=== PATIENT | male | born 1955 | race Caucasian/White ===

== ENCOUNTER 2020-04-27 09:59 | Observation (INO) | payer BC ==
[~2020-04-27] VITALS: Ht 172.7 cm; Wt 67.1 kg
[2020-04-27 10:23] VITALS: BP_SYST 114; BP_SYST 116; BP_SYST 121; BP_DIAS 69; BP_DIAS 71; BP_DIAS 72
[2020-04-27 10:27] LABS: BASOPHILS # (AUTO) 0.1 10^3/uL (0.0-0.1); BASOPHILS % (AUTO) 1 % (0-10); EOSINOPHILS # (AUTO) 0.2 10^3/uL (0.0-0.3); EOSINOPHILS % (AUTO) 2 % (0-10); HEMATOCRIT 39 % (40-54); HEMOGLOBIN 13.5 g/dL (13.3-17.7); LYMPHOCYTES # (AUTO) 1.2 10^3/uL (1.0-4.0); LYMPHOCYTES % (AUTO) 18 % (12-44); MEAN CORPUSCULAR HEMOGLOBIN 33 pg (25-34); MEAN CORPUSCULAR HGB CONC 35 g/dL (32-36); MEAN CORPUSCULAR VOLUME 95 fL (80-99); MEAN PLATELET VOLUME 8.9 fL (9.0-12.2); MONOCYTES # (AUTO) 0.3 10^3/uL (0.0-1.0); MONOCYTES % (AUTO) 4 % (0-12); NEUTROPHILS % (AUTO) 75 % (42-75); PLATELET COUNT 260 10^3/uL (130-400); WHITE BLOOD COUNT 6.7 10^3/uL (4.3-11.0)
--- NOTE | 2020-04-27 10:29 | ED Syncope ---
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 PAIN IN NECK EARLIER, NO CURRENT PAIN. Source of Information: Patient Exam Limitations: No Limitations History of Present Illness Date Seen by Provider: Apr 27, 2020 Time Seen by Provider: 10:09 Initial Comments Patient presents to the ER by private conveyance with chief complaint that this morning while exerting himself pulling some cable off of a truck at work he started feeling hot, dizzy, lightheaded and had to sit down. He felt some pain and tightness on both sides of his neck and the back. He denies shortness of breath nausea chest pain or abdominal pain. He says after resting the symptoms started to go away. When he got up to start working again he started feeling lightheaded and dizzy so his alves sent him to the ER. He says symptoms started at 8:30 approximately an hour and 45 minutes prior to arrival. He has no history of coronary disease. He is followed by Dr. GOMES. He does not take any medicines routinely. He does annual checkups but does not have any known medical problems. He denies cholesterol, hypertension, diabetes. He stopped smoking over 40 years ago but continues to use chew tobacco. He denies recreational drugs and only occasionally has a drink on weekends. No significant family medical history. He is in no distress at this time. He denies having actual passed out but he says is not certain and his alves told them that they thought he passed out for a short time. Allergies and Home Medications Allergies Coded Allergies: No Known Drug Allergies (Unverified , 06/03/16) Home Medications No Active Prescriptions or Reported Meds Patient Home Medication List Home Medication List Reviewed: Yes Review of Systems Constitutional: No chills, No diaphoresis, No fever, No malaise EENTM: No ear discharge, No ear pain Respiratory: No orthopnea, No phlegm, No short of breath Cardiovascular: see HPI; No chest pain, No Hx of Intervention, No palpitations; syncope Gastrointestinal: No abdominal pain, No constipation, No diarrhea, No nausea, No vomiting Genitourinary: No discharge, No dysuria Musculoskeletal: see HPI; No back pain, No joint pain; neck pain All Other Systems Reviewed Negative Unless Noted: Yes Past Yoqadcz-Pheojc-Zwpkak Hx Patient Social History Alcohol Use: Occasionally Uses Alcohol Beverage of Choice: Beer Recreational Drug Use: No Type Used: Cigarettes (quit over 40 years ago), Smokeless Tobacco (current) Former Smoker, Quit: Jun 03, 1976 Recent Foreign Travel: No Contact w/Someone Who Travel: No Recent Infectious Disease Expo: No Recent Hopitalizations: No Immunizations Up To Date Tetanus Booster (TDap): Unknown Seasonal Allergies Seasonal Allergies: No Past Medical History Currently Using CPAP: No Reproductive Disorders: No Sexually Transmitted Disease: No HIV/AIDS: No Physical Exam Vital Signs Vital Signs - First Documented 04/27/20 10:14 Temp 34.7 Pulse 60 Resp 18 B/P (MAP) 129/74 (92) Pulse Ox 100 O2 Delivery Room Air Capillary Refill : Less Than 3 Seconds Height, Weight, BMI Height: 5'8.00" Weight: 150lbs. 0.0oz. 68.096173ep; 21.00 BMI Method: General Appearance: No Apparent Distress, WD/WN HEENT: PERRL/EOMI, TMs Normal, Normal ENT Inspection, Pharynx Normal, Moist Mucous Membranes Neck: Full Range of Motion, Normal Inspection, Non Tender, Supple Cardiovascular: Regular Rate, Rhythm, No Edema, Normal Peripheral Pulses Respiratory: Chest Non Tender, Lungs Clear, Normal Breath Sounds, No Accessory Muscle Use, No Respiratory Distress Gastrointestinal: Normal Bowel Sounds, Non Tender, Soft Extremities: Normal Capillary Refill, Normal Inspection, Normal Range of Motion, Non Tender, No Calf Tenderness, No Pedal Edema Neurologic/Psychiatric: Alert, Oriented x3, No Motor/Sensory Deficits, Normal 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, 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 Norm as Tested Cranial Nerves: Normal Hearing, Normal Speech, PERRL Skin: Normal Color, Warm/Dry Progress/Results/Core Measures Results/Orders Lab Results Laboratory Tests Test 04/27/20 10:18 Range/Units White Blood Count 6.7 4.3-11.0 10^3/uL Red Blood Count 4.09 L 4.30-5.52 10^6/uL Hemoglobin 13.5 13.3-17.7 g/dL Hematocrit 39 L 40-54 % Mean Corpuscular Volume 95 80-99 fL Mean Corpuscular Hemoglobin 33 25-34 pg Mean Corpuscular Hemoglobin Concent 35 32-36 g/dL Red Cell Distribution Width 13.2 10.0-14.5 % Platelet Count 260 130-400 10^3/uL Mean Platelet Volume 8.9 L 9.0-12.2 fL Immature Granulocyte % (Auto) 0 % Neutrophils (%) (Auto) 75 42-75 % Lymphocytes (%) (Auto) 18 12-44 % Monocytes (%) (Auto) 4 0-12 % Eosinophils (%) (Auto) 2 0-10 % Basophils (%) (Auto) 1 0-10 % Neutrophils # (Auto) 5.0 1.8-7.8 10^3/uL Lymphocytes # (Auto) 1.2 1.0-4.0 10^3/uL Monocytes # (Auto) 0.3 0.0-1.0 10^3/uL Eosinophils # (Auto) 0.2 0.0-0.3 10^3/uL Basophils # (Auto) 0.1 0.0-0.1 10^3/uL Immature Granulocyte # (Auto) 0.0 0.0-0.1 10^3/uL Prothrombin Time 13.9 12.2-14.7 SEC INR Comment 1.0 0.8-1.4 Activated Partial Thromboplast Time 29 24-35 SEC Sodium Level 141 135-145 MMOL/L Potassium Level 3.7 3.6-5.0 MMOL/L Chloride Level 104 98-107 MMOL/L Carbon Dioxide Level 25 21-32 MMOL/L Anion Gap 12 5-14 MMOL/L Blood Urea Nitrogen 18 7-18 MG/DL Creatinine 1.24 0.60-1.30 MG/DL Estimat Glomerular Filtration Rate 58 BUN/Creatinine Ratio 15 Glucose Level 139 H 70-105 MG/DL Calcium Level 9.1 8.5-10.1 MG/DL Corrected Calcium 8.9 8.5-10.1 MG/DL Magnesium Level 2.2 1.6-2.4 MG/DL Total Bilirubin 1.0 0.1-1.0 MG/DL Aspartate Amino Transf (AST/SGOT) 22 5-34 U/L Alanine Aminotransferase (ALT/SGPT) 19 0-55 U/L Alkaline Phosphatase 61 40-136 U/L Myoglobin 96.3 H 10.0-92.0 NG/ML Troponin I < 0.028 <0.028 NG/ML B-Type Natriuretic Peptide 16.6 <100.0 PG/ML Total Protein 6.8 6.4-8.2 GM/DL Albumin 4.2 3.2-4.5 GM/DL My Orders Orders - LENIN WALLACE Cbc With Automated Diff (04/27/20 10:21) Magnesium (04/27/20 10:21) Chest 1 View, Ap/Pa Only (04/27/20 10:21) Ekg Tracing (04/27/20 10:21) Comprehensive Metabolic Panel (04/27/20 10:21) Myoglobin Serum (04/27/20 10:21) Protime With Inr (04/27/20 10:) Partial Thromboplastin Time (04/27/20 10:21) O2 (04/27/20 10:) Monitor-Rhythm Ecg Trace Only (04/27/20 10:) Lipid Panel (04/28/20 06:00) Ed Iv/Invasive Line Start (04/27/20 10:21) BNP (04/27/20 10:) Troponin I (04/27/20 10:) Aspirin Chewable Tablet (Baby Aspirin Ch (04/27/20 10:30) Orthostatic Vital Signs (Adult (04/27/20 10:21) Medications Given in ED Current Medications Medications Dose Ordered Sig/Robina Route Start Time Stop Time Status Last Admin Dose Admin Aspirin 324 mg ONCE ONCE PO 04/27/20 10:30 04/27/20 10:31 DC 04/27/20 10:34 324 MG Vital Signs/I&O 04/27/20 10:14 Temp 34.7 Pulse 60 Resp 18 B/P (MAP) 129/74 (92) Pulse Ox 100 O2 Delivery Room Air Blood Pressure Mean: 92 Progress Progress Note : Time: 10:28 Progress Note On EKG patient does have about half a block ST elevation in all 3 of his anterior leads V1 through V3. He's not having any symptoms at this time but we will cover him with aspirin. Concern would be that his symptoms came on with exertion and maybe an atypical anginal presentation with near syncope. First troponin was about 2 hours after his symptoms started. Plan to do orthostatic vital signs. Heart score with a negative troponin would still be 5 points. Initial ECG Impression Date: Apr 27, 2020 Initial ECG Impression Time: 10:17 Initial ECG Rate: 63 Initial ECG Rhythm: Normal Sinus Initial ECG Intervals: Normal Initial ECG Impression: Nonspecific Changes Initial ECG Comparisson: No Previous ECG Available Comment Normal sinus rhythm with one half box ST elevation in leads V1 through V3 of uncertain clinical significance. No ST elevation NE. No previous EKG to compare to. Diagnostic Imaging Diagonstic Imaging: Xray Plain Films/CT/US/NM/MRI: chest Comments [facility]. [place], [place] NAME: NENO CHAO [facility] REC#: [id number] PT STATUS: REG ER : 1955 PHYSICIAN: LENIN WALLACE MD ADMIT DATE: 04/27/20/ER Draft Date of Exam:04/27/20 CHEST 1 VIEW, AP/PA ONLY INDICATION: Dizziness and weakness. Time of exam 10:40 AM No prior studies are available for comparison. The heart size is normal. The pulmonary vascularity is unremarkable. The lungs are clear. No infiltrate, effusion or pneumothorax is detected. Impression: No acute cardiopulmonary process is detected. Dictated on workstation # [id number] Dict: 04/27/20 1046 Trans: 04/27/20 1047 [facility] [id number] Interpreted by: DOLLY GOLD MD Electronically signed by: Reviewed: Reviewed by Me Departure Communication (Admissions) Time/Spoke to Admitting Phy: 11:45 Discussed the case with Dr. Ramirez and he agrees to observe the patient on telemetry with cardiac consult. Time/Spoke to Consulting Phy: 11:[address] Macario, cardiology and he reviewed EKG and agrees to consult. Delta troponins Impression Primary Impression: Near syncope Additional Impression: atypical angina suspected Disposition: ADMITTED INPATIENT Condition: Stable Admissions Decision to Admit Reason: Admit from ER (General) Decision to Admit/Date: Apr 27, 2020 Time/Decision to Admit Time: 11:00 Departure-Patient Inst. Referrals: JESI GOMES DO (PCP/Family) Primary Care Physician Scripts No Active Prescriptions or Reported Meds LENIN WALLACE Apr 27, 2020 10:29
[2020-04-27] MEDS ORDERED: ASPIRIN 81 MG CHEW (CHILDREN'S ASA) PO ONE (10:30)
[2020-04-27 10:35] LABS: PROTHROMBIN TIME PATIENT 13.9 SEC (12.2-14.7)
[2020-04-27 10:44] LABS: ALBUMIN 4.2 GM/DL (3.2-4.5); CALCIUM 9.1 MG/DL (8.5-10.1); CREATININE SERUM 1.24 MG/DL (0.60-1.30); MAGNESIUM 2.2 MG/DL (1.6-2.4); POTASSIUM 3.7 MMOL/L (3.6-5.0); TOTAL PROTEIN 6.8 GM/DL (6.4-8.2)
--- NOTE | 2020-04-27 10:47 | Diagnostic Imaging Report ---
INDICATION: Dizziness and weakness. Time of exam 10:40 AM No prior studies are available for comparison. The heart size is normal. The pulmonary vascularity is unremarkable. The lungs are clear. No infiltrate, effusion or pneumothorax is detected. Impression: No acute cardiopulmonary process is detected. Dictated by: Dictated on workstation # [id number]
--- NOTE | 2020-04-27 11:02 | NUR ---
UPDATED FAMILY AT THIS TIME, AND SON.
[2020-04-27 12:26] VITALS: BP 120/69
[2020-04-27] MEDS ORDERED: CATHETER FLUSH 10 ML SYR IV PRN (12:30)
[2020-04-27] MEDS ORDERED: ONDANSETRON 4 MG/2 ML (SDV) Z0FRAN IV PRN (12:30)
[2020-04-27] MEDS ORDERED: morphine INJ 4 MG/ML 1 ML (VIAL/SYRINGE) IV PRN (12:30)
[2020-04-27] MEDS ORDERED: NITROGLYCERIN 0.4 MG SL TABS BTL 25'S SL PRN (12:30)
--- NOTE | 2020-04-27 14:27 | Consultation-Cardiology ---
HPI-Cardiology Cardiology Consultation Date of Consultation 04/27/20 Date of Admission Time Seen by Provider: 14:23 Indication: syncope HPI 64 years old gentleman with no significant past medical history, was working in the morning when he felt flushed and hot and lightheaded. Patient reported that he sat down with questionable syncope but does not recall passing out or fallin g. Patient expressed that he went and sat in his scars and had another similar episode where he felt flushed and lightheaded. He was sent to the emergency room. No previous similar episodes were reported, not taking any medication, did not have any cardiac history Home Medications & Allergies Allergies: Coded Allergies: No Known Drug Allergies (Unverified , 06/03/16) Home Medication List Reviewed: Yes VPT-Yrquiy-Ioorwh Hx Patient Social History Marital Status: Employed/Student: employed Alcohol Use: Occasionally Uses Recreational Drug Use: No Type Used: Cigarettes (quit over 40 years ago), Smokeless Tobacco (current) Recent Foreign Travel: No Recent Infectious Disease Expo: No Recent Hopitalizations: No Immunizations Up To Date Tetanus Booster (TDap): Unknown Past Medical History No significant past medical history Review of Systems-General Review of Systems Constitutional: see HPI; No chills, No diaphoresis, No fever, No malaise EENTM: No ear discharge, No ear pain Respiratory: No no symptoms reported; see HPI; No cough, No dyspnea on exertion, No hemoptysis, No orthopnea, No phlegm, No short of breath, No stridor, No wheezing, No other Cardiovascular: see HPI; No chest pain, No Hx of Intervention, No palpitations; syncope Gastrointestinal: no symptoms reported, see HPI; No abdominal pain, No constipation, No diarrhea, No nausea, No vomiting Genitourinary: no symptoms reported, see HPI; No discharge, No dysuria Musculoskeletal: no symptoms reported, see HPI; No back pain, No joint pain; neck pain Skin: no symptoms reported, see HPI Psychiatric/Neurological: No Symptoms Reported, See HPI All Other Systems Reviewed Negative Unless Noted: Yes Reviewed Test Results Reviewed Test Results Lab Laboratory Tests Test 04/27/20 10:18 Range/Units White Blood Count 6.7 4.3-11.0 10^3/uL Red Blood Count 4.09 L 4.30-5.52 10^6/uL Hemoglobin 13.5 13.3-17.7 g/dL Hematocrit 39 L 40-54 % Mean Corpuscular Volume 95 80-99 fL Mean Corpuscular Hemoglobin 33 25-34 pg Mean Corpuscular Hemoglobin Concent 35 32-36 g/dL Red Cell Distribution Width 13.2 10.0-14.5 % Platelet Count 260 130-400 10^3/uL Mean Platelet Volume 8.9 L 9.0-12.2 fL Immature Granulocyte % (Auto) 0 % Neutrophils (%) (Auto) 75 42-75 % Lymphocytes (%) (Auto) 18 12-44 % Monocytes (%) (Auto) 4 0-12 % Eosinophils (%) (Auto) 2 0-10 % Basophils (%) (Auto) 1 0-10 % Neutrophils # (Auto) 5.0 1.8-7.8 10^3/uL Lymphocytes # (Auto) 1.2 1.0-4.0 10^3/uL Monocytes # (Auto) 0.3 0.0-1.0 10^3/uL Eosinophils # (Auto) 0.2 0.0-0.3 10^3/uL Basophils # (Auto) 0.1 0.0-0.1 10^3/uL Immature Granulocyte # (Auto) 0.0 0.0-0.1 10^3/uL Prothrombin Time 13.9 12.2-14.7 SEC INR Comment 1.0 0.8-1.4 Activated Partial Thromboplast Time 29 24-35 SEC Sodium Level 141 135-145 MMOL/L Potassium Level 3.7 3.6-5.0 MMOL/L Chloride Level 104 98-107 MMOL/L Carbon Dioxide Level 25 21-32 MMOL/L Anion Gap 12 5-14 MMOL/L Blood Urea Nitrogen 18 7-18 MG/DL Creatinine 1.24 0.60-1.30 MG/DL Estimat Glomerular Filtration Rate 58 BUN/Creatinine Ratio 15 Glucose Level 139 H 70-105 MG/DL Calcium Level 9.1 8.5-10.1 MG/DL Corrected Calcium 8.9 8.5-10.1 MG/DL Magnesium Level 2.2 1.6-2.4 MG/DL Total Bilirubin 1.0 0.1-1.0 MG/DL Aspartate Amino Transf (AST/SGOT) 22 5-34 U/L Alanine Aminotransferase (ALT/SGPT) 19 0-55 U/L Alkaline Phosphatase 61 40-136 U/L Myoglobin 96.3 H 10.0-92.0 NG/ML Troponin I < 0.028 <0.028 NG/ML B-Type Natriuretic Peptide 16.6 <100.0 PG/ML Total Protein 6.8 6.4-8.2 GM/DL Albumin 4.2 3.2-4.5 GM/DL Physical Exam Physical Exam Vital Signs Vital Signs - First Documented 04/27/20 10:14 Temp 34.7 Pulse 60 Resp 18 B/P (MAP) 129/74 (92) Pulse Ox 100 O2 Delivery Room Air Capillary Refill : Less Than 3 Seconds Height, Weight, BMI Height: 5'8.00" Weight: 150lbs. 0.0oz. 68.956868bt; 21.49 BMI Method: General Appearance: No Apparent Distress, WD/WN Eyes: Bilateral Eye Normal Inspection, Bilateral Eye PERRL, Bilateral Eye EOMI HEENT: PERRL/EOMI, TMs Normal, Normal ENT Inspection, Pharynx Normal, Moist Mucous Membranes Neck: Full Range of Motion, Normal Inspection, Non Tender, Supple Respiratory: Chest Non Tender, Lungs Clear, Normal Breath Sounds, No Accessory Muscle Use, No Respiratory Distress Cardiovascular: Regular Rate, Rhythm, No Edema, Normal Peripheral Pulses Gastrointestinal: Normal Bowel Sounds, Non Tender, Soft Back: Normal Inspection, No CVA Tenderness, No Vertebral Tenderness Extremity: Normal Capillary Refill, Normal Inspection, Normal Range of Motion, Non Tender, No Calf Tenderness, No Pedal Edema Neurologic/Psychiatric: Alert, Oriented x3, No Motor/Sensory Deficits, Normal 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 I will evaluate 2-D echo and monitor on telemetry. Okay for discharge and follow-up as an outpatient Hypotension, transient, educated on increasing fluid intake and monitoring his blood pressure History of tobaccoism in the remote past LESLIE CARMONA MD Apr 27, 2020 14:27
--- NOTE | 2020-04-27 15:00 | History & Physical-Hospitalist ---
CHONG RHODES MED STUDENT 04/27/20 1459: History of Present Illness HPI/Chief Complaint Valentin Ruiz is a 64y/o M with cc of lightheadedness, dizziness and questionable syncoble episode. Pt presented to the ED at 10:09 from private vehicle after experiencing these symptoms while pulling some cable off the back of a work truck. Pt denies syncope but per ER report, alves thought he may have passed out for a short time. The pt went and sat in the truck, when he experienced similiar sxs again, at which time his alves recommended he go to the ER. When I spoke with the pt he described mainly having lightheadedness, less so dizziness, and additionally he felt flushed. He denied any pain anywhere during this episode. In the car on the way to the ER, he states his fingers felt cold and they had a hard time getting warm. Pt denies ever having an episode like this before. Pt denies any SOB, cough, phlem production, palpitations, abd pain, nausea or vomiting. Pt denies any recent viral illness. Pt denies ever having an episode like this before. Source: patient, EMS notes reviewed, old records Date Seen 04/27/20 Attending Physician Tyrel Robb MD PCP Giancarlo Anderson DO Referring Physician Date of Admission Apr 27, 2020 at 11:20 Home Medications & Allergies Home Medications Reviewed patient Home Medication Reconciliation performed by pharmacy medication reconciliations civil technician and/or nursing. Patients Allergies have been reviewed. Allergies Allergies Coded Allergies No Known Drug Allergies (Clmoyuulmq74/20/16) Past Bdjmebv-Cvjmvr-Ccwvxt Hx Patient Social History Marrital Status: Employed/Student: employed Alcohol Use: Occasionally Uses Alcohol Beverage of Choice: Beer Recreational Drug Use: No Former Smoker, Quit: Jun 03, 1976 Type Used: Cigarettes (quit over 40 years ago), Smokeless Tobacco (current) Recent Foreign Travel: No Contact w/other who traveled: No Recent Hopitalizations: No Recent Infectious Disease Expo: No Immunizations Up To Date Tetanus Booster (TDap): Unknown Seasonal Allergies Seasonal Allergies: No Past Medical History Surgeries: Orthopedic Currently Using CPAP: No Reproductive: No Sexually Transmitted Disease: No HIV/AIDS: No History of Blood Disorders: No Review of Systems Constitutional: No chills, No diaphoresis; dizziness; No fever Respiratory: No cough, No dyspnea on exertion, No phlegm, No short of breath Cardiovascular: No chest pain, No Hx of Intervention, No palpitations; syncope Gastrointestinal: No abdominal pain, No constipation, No diarrhea, No nausea, No vomiting Genitourinary: No dysuria, No incontinence Physical Exam Physical Exam Vital Signs Vital Signs - First Documented 04/27/20 10:14 Temp 34.7 Pulse 60 Resp 18 B/P (MAP) 129/74 (92) Pulse Ox 100 O2 Delivery Room Air Capillary Refill : Less Than 3 Seconds Height, Weight, BMI Height: 5'8.00" Weight: 150lbs. 0.0oz. 68.550578xj; 21.49 BMI Method: General Appearance: No Apparent Distress, WD/WN Eyes: Bilateral Eye Normal Inspection, Bilateral Eye PERRL, Bilateral Eye EOMI HEENT: PERRL/EOMI, Normal ENT Inspection, Moist Mucous Membranes; No Tonsillar Exudate, No Tonsillar Enlargement Neck: Full Range of Motion, Normal Inspection Respiratory: Lungs Clear, Normal Breath Sounds, No Accessory Muscle Use, No Respiratory Distress Cardiovascular: Regular Rate, Rhythm, No Edema, No Gallop, No Murmur, Normal Peripheral Pulses Gastrointestinal: Normal Bowel Sounds, No Organomegaly, No Pulsatile Mass, Non Tender, Soft Rectal: Deferred Extremity: Normal Capillary Refill, No Pedal Edema Neurologic/Psychiatric: Alert, Oriented x3, Normal 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 Assessment/Plan Admission Diagnosis Hypotensive Syncopal Episode Admission Status: Inpatient Order (span 2 midnights) Reason for Inpatient Admission: Lightheadedness Assessment and Plan Lightheadedness Likely syncopal episode 2/2 dehydration, versus vasovagal syncope, cardiovascular syncope or hypoglycemia. Troponin neg in ED. BNP normal. ED EKG showed a half block ST elevation in leads V1 to V3. CXR without acute changes. Will follow troponin serially. Assess for other cardiovascular RFs: order HgA1c, lipid panel. Continue aspirin, morphine and nitrogylcerin. Cardiology consulted, appreciate recommendations. DVT Prophylaxis: Continue Aspirin. TYREL ROBB MD 04/28/20 6139: History of Present Illness Time Seen by a Provider: 15:00 Past Fdmglwj-Umoeur-Ifibti Hx Past Med/Social Hx: Reviewed Nursing Past Med/Soc Hx Assessment/Plan Assessment and Plan Patient admitted with pre-syncope. Troponins normal. EKG unremarkable. Low-risk for CAD per Heart Score. Echo normal. Carotid ultrasound unremarkable. Diagnosis/Problems Diagnosis/Problems (1) Near syncope Status: Acute Supervisory-Addendum Brief Verification & Attestation Participated in pt care: history, MDM Personally performed: exam, history, MDM, supervision of care Care discussed with: Medical Student Procedures: n/a Results interpretation: Verified all documentation Verification and Attestation of Medical Student E/M Service A medical student performed and documented this service in my presence. I reviewed and verified all information documented by the medical student and made modifications to such information, when appropriate. I personally performed the physical exam and medical decision making. Tyrel Robb, Apr 28, 2020,17:55 CHONG RHODES MED STUDENT Apr 27, 2020 14:59 TYREL ROBB MD Apr 28, 2020 17:55
--- NOTE | 2020-04-27 15:55 | NUR ---
SPOKE WITH THE PT TO COMPLETE THE MED REC PT DENIES TAKING ANY MEDICATIONS
--- NOTE | 2020-04-27 15:59 | Diagnostic Imaging Report ---
PROCEDURE: US carotid duplex, bilateral. TECHNIQUE: Multiple real-time grayscale images were obtained over the carotid arteries in various projections, bilaterally. Additional spectral analysis and color Doppler duplex images were also obtained. INDICATION: Syncope. COMPARISON: None available. FINDINGS: Right carotid circulation: The right common carotid artery is normal in caliber, and there is no significant stenosis. Peak systolic velocity in the right common carotid artery is 96 cm/sec. There is a small amount of atherosclerotic plaque in the carotid bulb and proximal internal carotid artery, which results in less than 50% luminal narrowing by diaz scale imaging. The peak systolic velocity in the proximal internal carotid artery is 66 cm/sec. Proximal aspect of the external carotid artery is patent with expected high resistance waveforms, and peak systolic velocity of 87 cm/sec. Left carotid circulation: The left common carotid artery is normal in caliber, and there is no significant stenosis. Peak systolic velocity in the left common carotid artery is 100 cm/sec. There is no atherosclerotic plaque or narrowing in the carotid bulb or proximal ICA. The peak systolic velocity in the proximal internal carotid artery is 81 cm/sec. Proximal aspect of the external carotid artery is patent with expected high resistance waveforms, and peak systolic velocity of 74 cm/sec. Vertebral arteries: Flow in the bilateral vertebral arteries is antegrade. IMPRESSION: 1. Less than 50% stenosis at the origin of the right internal carotid artery due to calcified atherosclerotic plaque. 2. Normal left internal carotid artery. 3. Patent vertebral arteries with antegrade flow. Parameters based on the consensus panel Diaz-Scale and Doppler ultrasound criteria published April 2003, Radiology, Volume 229. DOPPLER (peak systolic velocity M/S Right Left CCA 0.96 1 ICA Proximal 0.66 0.81 ICA Mid 0.59 0.64 ICA Distal 0.65 0.60 RATIO 0.69 0.81 ECA 0.87 0.74 VERT 0.44 0.52 Dictated by: Dictated on workstation # [id number]
[2020-04-27 16:14] VITALS: BP 127/70
[2020-04-28] MEDS ORDERED: ASPIRIN E.C. 81 MG (ECOTRIN) TAB PO SCH (09:00)
--- NOTE | 2020-04-28 18:07 | Discharge Summary ---
Discharge Summary Hospital Course Was the Problem List Reviewed?: Yes Problems/Dx: (1) Near syncope Status: Acute Hospital Course Date of Admission: Apr 27, 2020 at 11:20 Admission Diagnosis : Pre-syncope Family Physician/Provider: Giancarlo Anderson DO Date of Discharge: 04/28/20 Discharge Diagnosis: Pre-syncope Hospital Course: Valentin Ruiz is a 64 year old male with no known past medical history who presented with lightheadedness. He was doing some strenuous work and had an episode of near fainting. He was brought to the emergency room. His orthostatic vitals were negative. His troponin was negative. His EKG was unremarkable. Cardiology was consulted and assisted with his care. He underwent an echo which was normal. He had a carotid ultrasound which revealed <50% carotid stenosis. His repeat troponin remained negative. He had no further lightheadedness or dizziness. He was discharged home in stable condition. He should follow up with his PCP. Labs and Pending Lab Test: Home Meds Active No Active Prescriptions or Reported Medications Assessment/Pt Instructions Take medications as prescribed. Follow up with your PCP. Return with worsening lightheadedness, dizziness, or if you feel like you are getting worse. Discharge Planning: <30 minutes discharge planning Discharge Instructions Discharge Diet: No Restrictions Activity as Tolerated: Yes Pneumonia Vaccine Order Indica: Yes Consultations Cardiology Discharge Physical Examination Vital Signs Vital Signs Date Time Temp Pulse Resp B/P (MAP) Pulse Ox O2 Delivery O2 Flow Rate FiO2 04/27/20 17:48 04/27/20 16:14 36.3 61 16 99 Room Air Allergies: Coded Allergies: No Known Drug Allergies (Unverified , 06/03/16) Discharge Summary Date of Admission Apr 27, 2020 at 11:20 Date of Discharge Apr 27, 2020 at 17:30 Discharge Date: Apr 27, 2020 Discharge Time: 17:30 Admission Diagnosis Near syncope Consults/Procedures Consulations Cardiology Discharge Diagnosis Near syncope (1) Near syncope Status: Acute TYREL ROBB MD Apr 28, 2020 18:07
== END 2020-04-27 16:20 | disposition home or self-care (01) ==
LOC: EDUNIT# 09:59 → ER 10:02 → UNDOADMOB 11:20 → 4TH 11:20 → UNDODISOB 17:30
PROVIDERS: ADMIT Internal Medicine; ATTEND Internal Medicine
DX: R55 Syncope and collapse (principal); I95.9 Hypotension, unspecified; Z87.891 Personal history of nicotine dependence
CPT/HCPCS: 71045; 80053; 83036; 83735; 83874; 83880; 84484; 85025; 85610; 85730; 93005; 93041; 93306; 93880; 99284; G0378; 36415

== ENCOUNTER → 2020-07-02 | Outpatient (CLI) | payer BC | LOC: CARD 10:00 | PROVIDERS: ATTEND Internal Medicine Cardiovascular Disease | DX: R55 Syncope and collapse (principal) | CPT/HCPCS: 93225; 93226 ==

== ENCOUNTER → 2020-07-03 | Outpatient (CLI) | payer BC ==
[~2020-07-03] VITALS: Ht 172 cm; Wt 66.0 kg
[~2020-07-03] MED LIST: CATHETER FLUSH 10 ML SYR IV PRN; REGADENOSON 0.4 MG/5 ML SYR (LEXISCAN) IV ONE
[2020-07-03 12:48] VITALS: BP 116/52
== END ==
LOC: CARD 11:02
PROVIDERS: ATTEND Internal Medicine Cardiovascular Disease
DX: R55 Syncope and collapse (principal)
CPT/HCPCS: 78452; 93017; A9502